=== PATIENT | male | born 1930 | race Caucasian/White ===

== ENCOUNTER 2019-03-13 13:06 | Emergency (ER) | payer MEDICARE, OTHER ==
--- NOTE | 2019-03-13 14:09 | ER Document Report ---
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 Patient denies syncope, denies any dizziness or lightheadedness, denies any pa lpitations preceding it. 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 Denies any headache, denies any acute weakness. 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 A comprehensive ED assessment and evaluation of the patient, analysis of test results and completion of medical decision making process will be conducted by an additional ED providers. TRAVEL OUTSIDE OF THE [place] IN LAST 30 DAYS: No - Related Data Allergies/Adverse Reactions: ciprofloxacin [From Cipro] Allergy (Verified 03/13/19 13:48) Past Medical History - Social History Chew tobacco use (# tins/day): No Frequency of alcohol use: Occasional Drug Abuse: None Physical Exam - Vital signs Vitals: Temp Pulse Resp BP Pulse Ox 97.5 F 55 L 14 149/60 H 97 03/13/19 13:47 03/13/19 13:47 03/13/19 13:47 03/13/19 13:47 03/13/19 13:47 Course - Vital Signs Vital signs: Temp Pulse Resp BP Pulse Ox 97.5 F 55 L 14 149/60 H 97 03/13/19 13:47 03/13/19 13:47 03/13/19 13:47 03/13/19 13:47 03/13/19 13:47
--- NOTE | 2019-03-13 14:32 | RADIOLOGY REPORT (SQ) ---
EXAM DESCRIPTION: CT HEAD WITHOUT COMPLETED DATE/TIME: 03/13/2019 2:20 pm REASON FOR STUDY: fall no LOC COMPARISON: None. TECHNIQUE: Axial images acquired through the brain without intravenous contrast. Images reviewed wi th bone, brain and subdural windows. Additional sagittal and coronal reconstructions were generated. Images stored on PACS. All CT scanners at this facility use dose modulation, iterative reconstruction, and/or weight based d osing when appropriate to reduce radiation dose to as low as reasonably achievable (ALARA). [facility]: Dose Right [facility]: CareDose [facility]: Dose Right [facility]: Teradose 4D [facility]: Smart Open [employer] Storage RADIATION DOSE: CT Rad equipment meets quality standard of care and radiation dose reduction techniq ues were employed. CTDIvol: 53.2 mGy. DLP: 1097 mGy-cm. mGy. LIMITATIONS: None. FINDINGS: VENTRICLES: Normal size and contour. CEREBRUM: No masses. No hemorrhage. No midline shift. No evidence for acute infarction. Normal gra y/white matter differentiation. Bilateral old lacunar infarcts. . CEREBELLUM: No masses. No hemorrhage. No alteration of density. No evidence for acute infarction. EXTRAAXIAL SPACES: No fluid collections. No masses. ORBITS AND GLOBE: No intra- or extraconal masses. Normal contour of globe without masses. CALVARIUM: No fracture. PARANASAL SINUSES: No fluid or mucosal thickening. SOFT TISSUES: No mass or hematoma. OTHER: No other significant finding. IMPRESSION: Bilateral old lacunar infarcts. No acute intracranial process. EVIDENCE OF ACUTE STROKE: NO. COMMENT: Quality ID # [id number]: Final reports with documentation of one or more dose reduction techniques (e.g., Automated exposure control, adjustment of the mA and/or kV according to patient size, use of iterative reconstruction technique) TECHNICAL DOCUMENTATION: JOB ID: [id number] [employer]- All Rights Reserved Reading location - IP/workstation name: [email or web address]
[2019-03-13] MEDS ORDERED: LIDOCAINE 1%/EPINEPHRINE INJ 20 ML VIAL INJ ONE (15:53)
[2019-03-13] MEDS ORDERED: DIPH/PERTUSS(ACELL)/TETANUS VAC/PF 0.5 ML SYR (>=10YO) IM ONE (15:54)
--- NOTE | 2019-03-13 16:02 | ER Document Report ---
ED General - General TRAVEL OUTSIDE OF THE [place] IN LAST 30 DAYS: No - Related Data Home Medications: Synthroid, Lasix, Toprol, losartan, isosorbide, terazosin, hydralazine <SHANNAN DIAZ - Last Filed: 03/13/19 17:22> <OLGA VARELA - Last Filed: 03/13/19 17:33> - General Chief Complaint: Head Injury without LOC Stated Complaint: HEAD INJURY Time Seen by Provider: 03/13/19 13:59 - HPI Notes: Patient is an 88-year-old male who presents to the emergency department for evaluation after a fall. He fell when he tripped over a brick. He did hit his head, sustained a laceration. He denies any neck or back pain. No loss of consciousness. He is unsure when his last tetanus shot was. He states he really only has minimal pain in his head. (SHANNAN DIAZ) - Related Data Allergies/Adverse Reactions: ciprofloxacin [From Cipro] Allergy (Verified 03/13/19 13:48) Past Medical History - General Information source: Patient - Social History Smoking Status: Never Smoker Chew tobacco use (# tins/day): No Frequency of alcohol use: Occasional Drug Abuse: None Family History: Reviewed & Not Pertinent Patient has suicidal ideation: No Patient has homicidal ideation: No - Past Medical History Cardiac Medical History: Reports: Hx Hypertension Neurological Medical History: Reports: Hx Cerebrovascular Accident Endocrine Medical History: Reports: Hx Hypothyroidism Renal/ Medical History: Reports: Hx Benign Prostatic Hyperplasia <SHANNAN DIAZ - Last Filed: 03/13/19 17:22> Review of Systems - Review of Systems Constitutional: No symptoms reported EENT: No symptoms reported Cardiovascular: No symptoms reported Respiratory: No symptoms reported Gastrointestinal: No symptoms reported Genitourinary: No symptoms reported Musculoskeletal: No symptoms reported Skin: See HPI Neurological/Psychological: No symptoms reported <SHANNAN DIAZ - Last Filed: 03/13/19 17:22> Physical Exam <SHANNAN DIAZ - Last Filed: 03/13/19 17:22> - Vital signs Vitals: Temp Pulse Resp BP Pulse Ox 97.5 F 55 L 14 149/60 H 97 03/13/19 13:47 03/13/19 13:47 03/13/19 13:47 03/13/19 13:47 03/13/19 13:47 - Notes Notes: This is a very pleasant 88-year-old male who appears younger than his stated age, no acute distress. Head is normocephalic. He does have a 2 cm linear laceration above the lateral aspect of the right brow. There does remain some minimal bleeding. There is a small skin tear associated with the superior aspect of this laceration. The patient further has an abrasion just lateral to the lateral canthus of the eye. Right pupil is equal and round, reactive to light. 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 Nares are patent without septal hematoma, no nasal bone tenderness. Patient does have a ecchymosis on the lateral aspect of the right orbital rim, without appreciable step-off. Oral mucosa is moist, uvula is midline. Heart is regular rate and rhythm, lungs are clear to station bilaterally. Abdomen is soft, nontender, normoactive bowel sounds. Examination of the spine is no midline tenderness or step-off. No paraspinal musculature tenderness is appreciated. Patient is awake, alert, oriented x3. Cranial nerves II - XII are grossly intact without focal neurological deficits. Strength is plus 5 out of 5 bilateral upper and lower extremities. Sensation is intact. Reflexes symmetrical. Intact [id number]-pdam-yhzamm, rapid alternating movements, [id number]. (SHANNAN DIAZ) Course <SHANNAN DIAZ - Last Filed: 03/13/19 17:22> - Re-evaluation Re-evalutation: 03/13/19 16:04 Patient presents to the emergency department for evaluation. This was a mechanical fall. CT scan of the head was unremarkable. He does not show any signs of facial bone fracture at this time. Attention was turned to the wound, which needs cleansed and closed. Tetanus was updated. 03/13/19 17:23 Patient tolerated closure well, will send him home with head injury instructions, laceration care instructions. He should have sutures removed in about 7 days. We discussed appropriate wound care, signs and symptoms of infection, and he voiced understanding. (SHANNAN DIAZ) - Vital Signs Vital signs: Temp Pulse Resp BP Pulse Ox 97.5 F 55 L 14 149/60 H 97 03/13/19 13:47 03/13/19 13:47 03/13/19 13:47 03/13/19 13:47 03/13/19 13:47 Procedures - Laceration/Wound Repair Right Head Wound length (cm): 2 Wound's Depth, Shape: Superficial, Linear Laceration pre-procedure: Sterile PPE donned, Sterile drapes applied, Other - chlorhexadine/saline Anesthetic type: 1% Lidocaine w/epi Volume Anesthetic (mLs): 7 Wound explored: Clean, No foreign body removed Irrigated w/ Saline (mLs): 200 Wound Debrided: Minimal Suture Size/Type: 5:0, Nylon Number of Sutures: 5 Post-procedure wound care: Sterile dressing applied - compression wrap Post-procedure NV exam normal: Yes Complications: No <OLGA VARELA - Last Filed: 03/13/19 17:33> Discharge <SHANNAN DIAZ - Last Filed: 03/13/19 17:22> <OLGA VARELA - Last Filed: 03/13/19 17:33> - Discharge Clinical Impression: Laceration of forehead Qualifiers: Encounter type: initial encounter Qualified Code(s): S01.81XA - Laceration without foreign body of other part of head, initial encounter Fall Qualifiers: Encounter type: initial encounter Qualified Code(s): W19.XXXA - Unspecified fall, initial encounter Head injury Qualifiers: Encounter type: initial encounter Qualified Code(s): S09.90XA - Unspecified injury of head, initial encounter Condition: Stable Disposition: HOME, SELF-CARE Instructions: Antibiotic Ointment Protection ([facility]), Laceration Care ([facility]), Tetanus Immunization Given ([facility]) Additional Instructions: Keep pressure bandage in place for 24 hours. Afterwards, keep clean with soap and water. Do not submerge wound. Rest. If you develop increased redness, drainage, fevers, rebleeding, or any other new or concerning symptoms, you need to return immediately to the emergency department for reevaluation. Otherwise, have sutures removed in 7 days.
[2019-03-13 17:50] VITALS: BP 140/61
== END 2019-03-13 17:49 | disposition home or self-care (01) ==
LOC: ER 13:06
PROC: 0HQ0XZZ Repair Scalp Skin, External Approach (ICD-10-PCS; principal; 2019-03-13)
DX: S09.90XA Unspecified injury of head, initial encounter (principal); S01.81XA Laceration without foreign body of other part of head, initial encounter; W18.09XA Striking against other object with subsequent fall, initial encounter; I10 Essential (primary) hypertension
CPT/HCPCS: 70450; 90715; 12001; J3490; 99283